=== PATIENT | male | born 1990 | race Caucasian/White ===

== ENCOUNTER 2016-05-01 02:15 | Emergency (ER) ==
--- NOTE | 2016-05-01 02:57 | PROVIDER DOCUMENTATION ---
HPI-Musculoskeletal Pain/Inj - GENERAL Source: patient - HX OF PRESENT ILLNESS-MUSKULOSKELTAL Quality of Pain: reports: pressure, sharp Severity in ED: moderate, severe Onset/Duration: abrupt, this evening Timing: still present Modifying Factors: improves with: nothing Any recent injury?: No Locality of Occurance: Home Similar Symptoms Previously?: No - FALL INJURY Location of Pain/Injury: reports: none <Jeison Alexandra - Last Filed: 05/01/16 02:53> <aSm Farias - Last Filed: 05/01/16 03:21> - GENERAL Chief Complaint: Generalized Pain Stated Complaint: BACK PAIN Time Seen by Provider: 05/01/16 02:53 - HX OF PRESENT ILLNESS-MUSKULOSKELTAL Nature of Presenting Problem: 25 y/o M walking down the street when his hips began to work. Pt describes the pain as someone trying to pull the ball out of the socket. Denies injury. Pain is relieved by pulling knees up to the chest. (Jeison Alexandra) Review of Systems - Adult - REVIEW OF SYSTEMS - ADULT Constitutional: denies: chills, fever Respiratory: denies: cough, shortness of breath, wheezing Genitourinary: denies: dysuria, discharge, frequency, hematuria Musculoskeletal: reports: joint pain (bilateral hip). denies: bone pain, joint swelling <Jeison Alexandra - Last Filed: 05/01/16 02:53> Past History - Adult - PAST MEDICAL HISTORY-ADULT Review of Records: reports: Old Records Reviewed, Nursing Assessment Review, Medications Reviewed Major Childhood Illnesses: reports: denies history Cardiovascular: reports: denies history Respiratory: reports: denies history Gastrointestinal: reports: denies history Obstetrical/Gynecological: reports: denies history Genitourinary: reports: denies history Musculoskeletal: reports: denies history Neurological: reports: denies history Endocrine/Immune: reports: other (allergies to bees) Other Conditions: reports: denies history Additional History: Dental caries - PRIOR SURGERIES/PROCEDURES Surgical/Procedure History: reports: orthopedic (extremity) - IMMUNIZATION STATUS Childhood Immunizations: See Nurse Assessment Flu Vaccine: See Nurse Assessment - FAMILY HISTORY Family History: reviewed, not pertinent - SOCIAL HISTORY Smoking: cigarettes, less than 1 pack/day Substance Use: alcohol Living Situation: alone <Jeison Alexandra - Last Filed: 05/01/16 02:53> Physical Exam-Injury Related - Physical Exam-Injury Related Initial Vital Signs Reviewed: Yes General Appearance: appears well, alert, no apparent distress Eyes: PERRL/EOMI, pink conjunctivae Head, Ears, Nose, Mouth & Throat: moist mucous membranes, normal ENT inspection , TMs normal, pharynx normal Neck: non-tender, full range of motion, supple, normal inspection Respiratory: lungs clear, normal breath sounds, no pleuratic chest pain, no respiratory distress, no accessory muscle use Cardiovascular: normal peripheral pulses, regular rate, rhythm Abdominal Exam: normal bowel sounds, non tender, soft Back Exam: normal inspection, no CVA tenderness, no vertebral tenderness, CVA tenderness Extremity: normal range of motion, normal gait, tenderness (over the hip) Integumentary: normal color, warm/dry Neurologic: grossly normal, no motor/sensory deficits Psych/Mental Status: normal mood/affect, normal thought content, normal thought process, oriented x 3 <Jeison Alexandra - Last Filed: 05/01/16 02:53> Departure <Jeison Alexandra - Last Filed: 05/01/16 02:53> - Departure Time of Disposition Order: 03:18 Certified Medical Emergency: Emergent <Sam Farias - Last Filed: 05/01/16 03:21> - Departure DIAGNOSIS: Arthralgia of hip Qualifiers: Laterality: bilateral Qualified Code(s): M25.551 - Pain in right hip; M25.552 - Pain in left hip Disposition: HOME 01 Condition: Stable Additional Instructions: ED Follow Up Instructions: You have been treated by a care provider in the Emergency Department. These instructions are being provided to you so you can have an understanding of how to care for yourself upon discharge. Upon discharge from the Emergency Department, you are responsible for making arrangements for follow-up care by a physician of your choice. Take all prescribed medications as directed. Return to the Emergency Department immediately for any new or worsening symptoms. You may call the Physician Referral phone number at [phone] to obtain a list of Physicians who are taking new patients. Prescriptions: Naproxen 500 mg PO BID #30 tablet Referrals: Justice Alcaraz MD [STAFF PHYSICIAN] - None,PCP [Primary Care Provider] - Instructions: Arthralgia, [id number] Attestation - Scribe Verification/Attestation Scribe:: Jeison Alexandra Acting as Scribe for:: Sam Farias Scribe documention review:: This chart was documented by a scribe and accurately reflects the service the provider performed and the decisions made by the provider. <Jeison Alexandra - Last Filed: 05/01/16 02:53> Physician Attestation
[2016-05-01] MEDS ORDERED: DEPO-MEDROL IM ONE (03:20)
[2016-05-01 03:45] VITALS: BP 105/68
--- NOTE | 2016-05-01 06:42 | Diag Imaging Result Document ---
PROCEDURE NAME: PELVIS - 05/01/2016 PELVIS SINGLE VIEW: FINDINGS: No fracture. No dislocation. No other bony abnormality. IMPRESSION: Negative exam.
== END 2016-05-01 03:44 | disposition home or self-care (01) ==
LOC: P.ED 02:15
DX: M25.552 Pain in left hip (principal); M25.551 Pain in right hip; F17.210 Nicotine dependence, cigarettes, uncomplicated; Z91.030 Bee allergy status; K02.9 Dental caries, unspecified
CPT/HCPCS: 72170; 96372; J1030